=== PATIENT | male | born 1985 | race Two or more races ===

== ENCOUNTER 2020-09-02 12:00 | Emergency (ER) | payer SELFPAY ==
[~2020-09-02] VITALS: Ht 182.9 cm; Wt 113.0 kg
--- NOTE | 2020-09-02 12:06 | NUR ---
PT CAME IN [place] CHEST PAIN AND ANXIETY. WAS RECENTLY SEE AT "A HOSPTIAL FOR SAME, BUT NOT SURE WHICH ONE IT WAS". PT WAS GIVEN SOME ANXIETY MEDS AND DID NOT GET THOSE FILLED. PT RESTING IN [facility]. EKG COMPLETE. CONNECTED TO ALL MONITORING EQUIPMENT
--- NOTE | 2020-09-02 12:20 | NUR ---
PT HAD EPISODE OF [facility] IN [place]. HOUSEKEEPING CALLED. PT PACING IN ROOM REQUESTING RN. RESP EVEN AND UNLABORED, NOLVIA. PRIMARY RN NOTIFIED.
[2020-09-02] MEDS ORDERED: LORazepam 1MG TABLET ONE (12:23)
--- NOTE | 2020-09-02 12:24 | NUR ---
PT REMOVED ALL MONITORING EQUIPMENT.
[2020-09-02] MEDS ORDERED: LORazepam 1MG TABLET PO ONE (12:30)
--- NOTE | 2020-09-02 12:33 | NUR ---
PT REPEATEDLY ASKING FOR WATER. PT EDUCATED ON THE NEED TO HOLD OFF DRINKING WATER UNTIL THE DOC GIVES IT THE OK
[2020-09-02 12:49] LABS: ANION GAP 12 mmol/L (5-15); BASOPHILS % (AUTO) 1 % (0-1); CALCIUM 8.4 mg/dL (8.5-10.1); CHLORIDE 105 mmol/L (98-107); CREATININE 1.22 mg/dL (0.7-1.3); EOSINOPHILS % (AUTO) 0 % (1-7); LYMPHOCYTES % (AUTO) 41 % (22-44); MEAN CORPUSCULAR HEMOGLOBIN 32.3 pg (27.5-34.5); MEAN CORPUSCULAR HGB CONC 34.3 g/dL (33.2-36.2); MEAN PLATELET VOLUME 7.5 fL (7.4-10.4); MONOCYTES % (AUTO) 10 % (2-9); NEUTROPHILS % (AUTO) 49 % (42-75); PLATELET COUNT 312 x10^3/uL (130-400); RED CELL DISTRIBUTION WIDTH 14.1 % (9.4-14.8)
[2020-09-02 12:53] LABS: MD NO; TROPONIN I < 0.015 ng/mL (0.000-0.045)
--- NOTE | 2020-09-02 12:55 | NUR ---
AWARE OF PT BEHAVIOR
[2020-09-02 13:35] LABS: SALICYLATE LEVEL < 1.7 mg/dL (2.8-20.0)
[2020-09-02] MEDS ORDERED: ONDANSETRON 2MG/ML, 2ML ONE (13:41)
[2020-09-02] MEDS ORDERED: LORazepam 2 MG/ML, 1ML IVPush ONE (14:00)
[2020-09-02] MEDS ORDERED: SODIUM CHLORIDE 0.9% 1,000 ML IV ONE (14:00)
[2020-09-02] MEDS ORDERED: ONDANSETRON 2MG/ML, 2ML IVPush ONE (14:00)
[2020-09-02] MEDS ORDERED: SODIUM CHLORIDE FLUSH 10ML SYR IVF ONE (14:00)
[2020-09-02] MEDS ORDERED: SODIUM CHLORIDE 0.9% 1,000ML IVBOLUS ONE (14:00)
[2020-09-02 14:01] VITALS: BP 154/98
--- NOTE | 2020-09-02 14:02 | NUR ---
PT RECONNECTED TO MONITORING EQUIPMENT.
--- NOTE | 2020-09-02 14:37 | NUR ---
TASK RN: ANDREA COLLECTED AND WALKED TO LAB
[2020-09-02 15:04] LABS: AMPHETAMINE SCREEN, URINE Negative (Negative); BARBITURATE SCREEN, URINE Negative (Negative); BENZODIAZEPINE SCREEN, URINE Negative (Negative); CANNABINOID SCREEN, URINE Negative (Negative); COCAINE SCREEN, URINE Negative (Negative); METHADONE SCREEN, URINE Negative (Negative); OPIATE SCREEN, URINE Negative (Negative)
--- NOTE | 2020-09-02 15:26 | NUR ---
PT AMBULATED TO BATHROOM UNASSISTED WITH A STEADY GATE. PT OUTSIDE OF ROOM WITH MASK OFF. PT ASKED TO PUT MASK ON FOR PT SAFETY.
--- NOTE | 2020-09-02 16:28 | NUR ---
TASK RN: DC EDUCATION PROVIDED, PT DEMONSTRATES UNDERSTANDING. PT AMBUALTED STEADILY TO DC WITH NANCY HURD. PT DRESSED APPROPRIATELY FOR WEATHER
== END 2020-09-02 16:30 | disposition home or self-care (01) ==
LOC: ED 16:20
DX: F41.1 Generalized anxiety disorder (principal); F10.120 Alcohol abuse with intoxication, uncomplicated; E87.6 Hypokalemia; I10 Essential (primary) hypertension
CPT/HCPCS: 36415; 71045; 80048; 80299; 80307; 80320; 80329; 82040; 84484; 85025; 93005; 96361; 96374; 99285; J2405; J7030; G0480

== ENCOUNTER 2020-09-26 16:35 | Emergency (ER) | payer SELFPAY ==
[~2020-09-26] VITALS: Ht 182.9 cm; Wt 95.0 kg
[2020-09-26] MEDS ORDERED: ENALAPRILAT 1.25 MG/ML, 2ML IV ONE (17:00)
[2020-09-26] MEDS ORDERED: ONDANSETRON 2MG/ML, 2ML IVPush ONE (17:00)
[2020-09-26 17:13] LABS: BASOPHILS % (AUTO) 1 % (0-1); EOSINOPHILS % (AUTO) 1 % (1-7); LYMPHOCYTES % (AUTO) 47 % (22-44); MEAN CORPUSCULAR HEMOGLOBIN 32.7 pg (27.5-34.5); MEAN CORPUSCULAR HGB CONC 34.2 g/dL (33.2-36.2); MEAN PLATELET VOLUME 7.6 fL (7.4-10.4); MONOCYTES % (AUTO) 8 % (2-9); NEUTROPHILS % (AUTO) 44 % (42-75); PLATELET COUNT 304 x10^3/uL (130-400); RED BLOOD COUNT 4.92 x10^6/uL (4.38-5.82); RED CELL DISTRIBUTION WIDTH 14.5 % (9.4-14.8)
[2020-09-26 17:17] LABS: MD NO
[2020-09-26] MEDS ORDERED: LABETALOL 5MG/ML, 20ML ONE (17:20)
[2020-09-26] MEDS ORDERED: ONDANSETRON 2MG/ML, 2ML ONE (17:21)
[2020-09-26 17:26] LABS: ALANINE AMINOTRANSFERASE 61 U/L (12-78); ALBUMIN 3.9 g/dL (3.4-5.0); ANION GAP 11 mmol/L (5-15); CALCIUM 7.7 mg/dL (8.5-10.1); CHLORIDE 108 mmol/L (98-107); CREATININE 1.14 mg/dL (0.7-1.3)
[2020-09-26] MEDS ORDERED: LABETALOL 5MG/ML, 20ML IVPush ONE (17:30)
[2020-09-26] MEDS ORDERED: LISINOPRIL 20 MG TABLET PO ONE (17:30)
[2020-09-26 17:31] LABS: ALKALINE PHOSPHATASE 95 U/L (45-117); BILIRUBIN,TOTAL 0.3 mg/dL (0.2-1.0); TROPONIN I < 0.015 ng/mL (0.000-0.045)
[2020-09-26] MEDS ORDERED: POTASSIUM CHLORIDE 20 MEQ, MAGNESIUM SULFATE 1 GM, FOLIC ACID 1 MG, THIAMINE 200 MG in ... IV SCH (18:00)
[2020-09-26] MEDS ORDERED: LORazepam 2 MG/ML, 1ML ONE (18:15)
[2020-09-26] MEDS ORDERED: LORazepam 2 MG/ML, 1ML IVPush ONE (18:30)
[2020-09-26] MEDS ORDERED: LISINOPRIL 20 MG TABLET ONE (18:42)
--- NOTE | 2020-09-26 18:52 | NUR ---
RECEIVED BS REPORT FROM NANCY SANTIAGO TO ASSUME CARE OF PT. AT THIS TIME. PT. RESTING ON GURNEY WITH EYES CLOSED. RESPIRATIONS EVEN, NON-LABORED. REPEAT TROP TO BE DONE AT 1999. ALL SAFETY MEASURES OBSERVED.
--- NOTE | 2020-09-26 18:56 | NUR ---
Late entry summary note: This pt is a poor historian. BIB EMS but did not mention CP until he arrived to the ER. Pt has a hx of HTN but he does not take his medication. Pt was immediately connnected to all monitoring upon arrival. Approx 1 hour ago pt got up, removed all monitoring and dressed himself. Pt is not safe for D/C at this time as his gait is unsteady. Pt back to bed, BP and O2 monitoring back in place. Lights off to promote rest. Bedside report to NANCY Baker.
[2020-09-26 19:13] VITALS: BP 168/95
--- NOTE | 2020-09-26 19:59 | NUR ---
PT. AMBULATING AROUND ROOM AND REMOVED ALL MONITORS AND IVF. PT. STATES HIS FRIEND IS OUTSIDE TO PICK HIM UP TO TAKE HIM HOME. PT. SUPPOSED TO HAVE REPEAT TROP DONE PRIOR TO D/C BUT IS REFUSING. DR. BROOKS IN TO SPEAK WITH PT. ABOUT POC. PT. CONTINUES TO REFUSE TO STAY IN ED. AMA PAPERS SIGNED. PT. A&O X 4 AND AMBULATORY WITH STEADY GAIT.
--- NOTE | 2020-09-26 20:01 | NUR ---
PT. REFUSED D/C VS. STATING "I AM GETTING VERY IRRITATED AND I WOULD LIKE TO LEAVE NOW".
== END 2020-09-26 20:03 | disposition left against medical advice (07) ==
LOC: ED 19:50
DX: I10 Essential (primary) hypertension (principal); F10.220 Alcohol dependence with intoxication, uncomplicated; R11.10 Vomiting, unspecified; Z72.9 Problem related to lifestyle, unspecified; Y90.0 Blood alcohol level of less than 20 mg/100 ml
CPT/HCPCS: 36415; 71045; 80053; 80320; 84484; 85025; 93005; 96365; 96366; 96375; 99285; J2060; J2405; J3411; J3475; J3480; J7042; G0480